=== PATIENT | female | born 1995 | race Caucasian/White ===

== ENCOUNTER 2024-09-20 06:00 | Inpatient (IN) | payer OTHER ==
[2024-09-20] MEDS ORDERED: Bupivacaine/Epinephrine 0.25% 30 ML VIAL ONE (08:00)
[2024-09-20] MEDS ORDERED: Promethazine HCl 25 MG/ML VIAL IM PRN ×3 (11:04→21:32)
[2024-09-20] MEDS ORDERED: Carboprost 250 MCG/ML AMP IM PRN (11:04)
[2024-09-20] MEDS ORDERED: Ibuprofen 800 MG TAB PO PRN (11:04)
[2024-09-20] MEDS ORDERED: Lidocaine 1% (PF) 30 ML VIAL SC PRN (11:04)
[2024-09-20] MEDS ORDERED: fentaNYL 50 mcg/mL 1 mL Vial SLOW IVP PRN (11:04)
[2024-09-20] MEDS ORDERED: Methylergonovine 0.2 MG/ML VIAL IM PRN (11:04)
[2024-09-20] MEDS ORDERED: Lactated Ringer's 1,000 ML IV SCH (11:04)
[2024-09-20] MEDS ORDERED: Oxytocin 30 units/NS 500 ML 500 ML IV SCH ×2 (11:04)
[2024-09-20] MEDS ORDERED: hydrALAZINE 20 MG/ML VIAL SLOW IVP PRN ×2 (11:04→21:32)
[2024-09-20] MEDS ORDERED: Ondansetron PF 4 MG/2 ML Vial IVP PRN ×3 (11:04→21:32)
[2024-09-20] MEDS ORDERED: Acetaminophen 500 MG TAB PO PRN (11:04)
[2024-09-20] MEDS ORDERED: Diphenoxylate HCl/Atropine Tablet PO PRN (11:04)
[2024-09-20] MEDS ORDERED: Misoprostol 200 MCG TAB PR PRN (11:04)
[2024-09-20 11:05] VITALS: BMI 32.3
[2024-09-20 11:26] LABS: Hematocrit 35.2 % (34.9-44.5); Mean Corpuscular HGB CONC 34.1 g/dL (32.0-36.0); Mean Corpuscular Hemoglobin 30.2 pg (27.0-33.0); Mean Corpuscular Volume 88.7 fL (81.6-98.3); Mean Platelet Volume 10.3 fL (7.4-10.4); Platelet Count 270 10x3/uL (150-450); RBC Distribution Width 13.1 % (11.5-14.5); Red Blood Cell (RBC) Count 3.97 10x6/uL (3.90-5.03); White Blood Cell (WBC) Count 10.7 10x3/uL (3.5-10.5)
[2024-09-20 12:00] LABS: Hep B Surf Ag - L&D Non-Reactive S/CO (NonReactive)
[2024-09-20 12:01] LABS: Syphilis Antibody Nonreactive (Nonreactive); Syphilis Antibody Index 0.03 S/CO (<1.00 Non-Reactive)
[2024-09-20] MEDS: fentaNYL/Ropivacaine Epidural 100 ML ONE (15:07)
[2024-09-20] MEDS: Oxytocin 30 units/NS 500 ML 500 ML IV SCH (15:07)
[2024-09-20] MEDS ORDERED: ePHEDrine Sulfate 50 MG/10 ML VIAL SLOW IVP PRN (15:23)
[2024-09-20] MEDS ORDERED: Acetaminophen 325 MG TAB PO PRN (15:23)
[2024-09-20] MEDS ORDERED: Moisturizing Cream (Eucerin) 113 GM JAR TOP PRN (15:23)
[2024-09-20] MEDS ORDERED: Naloxone HCl 0.4 mg/ml Vial IVP PRN ×2 (15:23)
[2024-09-20] MEDS ORDERED: Lactated Ringer's 500 ML IV PRN (15:23)
[2024-09-20] MEDS ORDERED: diphenhydrAMINE 50 MG/ML VIAL IVP PRN (15:23)
[2024-09-20] MEDS ORDERED: Communication Order-Pharmacy FS SCH (15:30)
[2024-09-20] MEDS ORDERED: fentaNYL 2 mcg/Ropivacaine 0.2% Epidural 100 ML CADD EPIDURAL SCH (15:30)
[2024-09-20] MEDS ORDERED: Bisacodyl 10 MG SUPP PR PRN (21:32)
[2024-09-20] MEDS ORDERED: Milk Of Magnesia 30 ML UDCUP PO PRN (21:32)
[2024-09-20] MEDS ORDERED: HYDROcodone/Acetaminophen 5/325 mg Tablet PO PRN (21:32)
[2024-09-20] MEDS ORDERED: Lanolin Ointment 7 GM TUBE TOP PRN (21:32)
[2024-09-20] MEDS ORDERED: Preparation H Ointment 28 GM TUBE PR PRN (21:32)
[2024-09-20] MEDS ORDERED: Benzocaine-Menthol 82.5 ML CAN TOP PRN (21:32)
[2024-09-20] MEDS ORDERED: diphenhydrAMINE 25 MG CAP PO PRN (21:32)
[2024-09-20] MEDS: Ibuprofen 800 MG TAB PO SCH (22:29)
[2024-09-20] MEDS: Docusate 100 MG CAP PO SCH (22:29)
[2024-09-21] MEDS: Ferrous Sulfate 325 MG TAB PO SCH (13:25)
[2024-09-21] MEDS: Docusate 100 MG CAP PO SCH (13:26)
[2024-09-21] MEDS: Prenatal Vitamin 1 TAB PO SCH (13:27)
[2024-09-22 07:09] VITALS: BP 133/84; TEMP 98.4
[2024-09-22] MEDS: Boostrix 0.5 ML (Tdap) VIAL (>/=7 yrs of age) IM ONE (10:21)
== END 2024-09-22 15:10 | disposition home or self-care (01) | DRG 807 ==
LOC: CSHLD 06:05 → CSHPP 21:15
PROVIDERS: ADMIT Family Medicine; ATTEND Family Medicine
PROC: 10E0XZZ Delivery of Products of Conception, External Approach (ICD-10-PCS; principal; 2024-09-20)
DX: O80 Encounter for full-term uncomplicated delivery (principal); Z37.0 Single live birth; Z3A.39 39 weeks gestation of pregnancy
CPT/HCPCS: 36415; 51702; 85027; 85461; 86780; 86850; 86900; 86901; 87340; 90384; 96372; J2590